=== PATIENT | female | born 1985 | race Caucasian/White ===

== ENCOUNTER 2017-11-09 19:58 | Emergency (ER) | payer OTHER ==
[~2017-11-09] VITALS: Ht 160 cm; Wt 59.9 kg
[2017-11-09] MEDS ORDERED: ERYT1OIN6 OP (20:42)
[2017-11-09] MEDS ORDERED: NORE-79 (20:43)
--- NOTE | 2017-11-09 20:46 | ED EENT ---
History of Present Illness General Stated Complaint: LEFT EYE INFECTION Source: patient, other Exam Limitations: no limitations History of Present Illness Time seen by provider: 20:37 Initial Comments Patient presents to ER by private conveyance for 1-1/2 days progressively worsening redness and tenderness of her left eye. Her child also had a similar eye infection was put on antibiotics and it got better about 3 days ago. She is having quite a bit of mattering throughout the day and some purulence coming from the inner canthus of her eye. She has a foreign body sensation of grit in her eye. She's having no fevers chills nausea vomiting or diarrhea. She has no allergies anything and she is not currently . Patient typically wears contacts all the time but when she took them out last night she didn't feel some mattering and felt like she had a I infection coming on. She is wearing glasses at this time. Review of Systems Constitutional: No chills, No diaphoresis, No fever Eyes: Denies Blindness, Denies Blurred Vision, Drainage, Pain Ears: Denies Dizziness, Denies Pain Nose: denies clots, denies congestion Mouth: denies clots, denies loose teeth Throat: denies pain, denies swelling Respiratory: No cough, No dyspnea on exertion Cardiovascular: No see HPI, No chest pain Past Xzgbloy-Cqqxun-[id number] Hx Patient Social History Alcohol Use: Denies Use Recreational Drug Use: No Smoking Status: Never a Smoker Recent Foreign Travel: No Contact w/Someone Who Travel: No Physical Exam General Appearance: WD/WN, no apparent distress Eyes: right eye normal inspection, left eye conjunctival inflammation, bilateral eye PERRL, bilateral eye EOMI Ears: bilateral ear auricle normal, bilateral ear canal normal, bilateral ear TM normal Nose: normal inspection, No active bleeding Mouth/Throat: normal mouth inspection, pharynx normal (oral mucosa is moist) Neck: full range of motion, normal inspection Neurologic/Psychiatric: alert, oriented x 3 Progress/Results/Core Measures Progress Note : Time: 20:48 Progress Note Visual acuity 20/25 bilateral eyes. Departure Impression Impression: Primary Impression: Bacterial conjunctivitis of left eye Disposition: HOME, SELF-CARE Condition: Stable Departure-Patient Inst. Decision time for Depature: 20:49 Referrals: NO,LOCAL PHYSICIAN (PCP) Primary Care Physician Patient Instructions: Conjunctivitis (Pinkeye) (DC), How to Use Eye Ointment Add. Discharge Instructions: Use warm compresses from the inner canthus of your eye wiping out as needed. Apply a half-inch ribbon of erythromycin antibiotic ointment to the lower eyelid every 4 hours for the next 7 days. You should see some improvement by 3- 4 days. You may use Tylenol 1000 mg every 8 hours or ibuprofen 800 mg every 8 hours for pain or swelling around the eye. If you have itching you may take one tablet of Zyrtec, Lucrecia, Claritin every day as needed. Keep your hands clean and out of your face is much as possible. If he started having vision loss, headaches, fevers, nausea you should return to the ER/primary care physician or to your doctor of audiology/restaurant maintenance technician for further evaluation and management. Scripts Erythromycin Base (Erythromycin Opthalmic Ointment) 1 Gm Oint...g. 0 OP Q4H for 7 Days, #1 TUBE 0 Refills 1/2 inch Prov: ADIN OCAMPO 11/09/17 ADIN OCAMPO Nov 09, 2017 20:46
[2017-11-09 20:56] VITALS: BP 126/86
== END 2017-11-09 20:56 | disposition home or self-care (01) ==
LOC: EDUNIT# 19:58 → ER 20:01
DX: H10.89 Other conjunctivitis (principal); B96.89 Other specified bacterial agents as the cause of diseases classified elsewhere
CPT/HCPCS: 99282